=== PATIENT | female | born 1970 | race Caucasian/White ===

== ENCOUNTER → 2018-09-03 10:49 | Outpatient (CLI) | payer OTHER, SELFPAY ==
--- NOTE | 2018-09-03 12:39 | DI.MG.S_ITS ---
BILATERAL DIGITAL DIAGNOSTIC MAMMOGRAM 3D/2D: 09/03/2018 CLINICAL: Left breast pain. Per technologist, the patient reports left breast pain that has been ongoing for 3 years. Always would come and go, until summer 2017 it became a constant dull ache that would be increasingly tender to touch. Localized to one area. Not comparible to cyclic pain. All pain subsided 3 weeks ago. No other changes noted and no recent CBE done.. Comparison is made to exams dated: 08/17/2016 mammogram, 11/25/2014 mammogram, and 11/19/2013 mammogram - [facility]. There are scattered fibroglandular elements in both breasts. There is a square marker overlying the skin of the upper outer left breast at anterior depth at the site of the patient's reported focal pain. There is no underlying mammographic abnormality. No significant masses, calcifications, or other findings are seen in either breast. IMPRESSION: INCOMPLETE: NEEDS ADDITIONAL IMAGING EVALUATION No mammographic abnormality to correlate with the site of the patient's reported prior focal upper outer left breast pain. Targeted diagnostic ultrasound recommended for further evaluation, which will be performed immediately following this exam. This exam was interpreted at Station ID: [id number]. NOTE: For mammograms, a report in lay terms will be sent to the patient. Approximately 15% of breast malignancies will not be visualized mammographically. In the management of a palpable breast mass, a negative mammogram must not discourage biopsy of a clinically suspicious lesion. Electronically Signed By: Desmond Cortes M.D. ecl/:09/03/2018 13:33:15 letter sent: Additional Imaging Needed ACR BI-RADS Category 0: Incomplete [id number]
--- NOTE | 2018-09-03 12:39 | DI.US.S_ITS ---
LIMITED ULTRASOUND OF LEFT BREAST: 09/03/2018 CLINICAL: Diffuse left breast pain x 3 yrs. Comparison is made to exams dated: 09/03/2018 mammogram, 08/17/2016 mammogram, 11/25/2014 mammogram, 11/19/2013 mammogram - [facility], and 07/09/2011 mammogram - [facility] [place]. Color flow and real-time ultrasound of the left breast 2 o'clock region were performed. Carreon scale images of the real-time examination were reviewed. Targeted ultrasound was performed in the region of the patient's reported focal pain in the left breast at 2 o'clock 3 cm from the nipple to 2 o'clock 15 cm from the nipple. No underlying breast mass or abnormality is identified. IMPRESSION: NEGATIVE 1) No ultrasound findings to explain patient's reported focal pain in the left breast at 2 o'clock position. Recommend clinical follow-up for further evaluation and management of the patient's reported symptoms. 2) There is no sonographic evidence of malignancy in the imaged left breast. Return to annual screening mammography is recommended. The patient is advised to monitor her breasts and to return sooner for re-evaluation should she feel anything grow or change. This exam was interpreted at Station ID: [id number]. Electronically Signed By: Desmond Cortes M.D. ecl/:09/03/2018 14:53:03 letter sent: Clinical Evaluation Ultrasound BI-RADS: 1 Negative
== END ==
PROVIDERS: Family Provider Nurse Practitioner Family; PCP Nurse Practitioner Family; Visit Provider Obstetrics & Gynecology
DX: R92.8 Other abnormal and inconclusive findings on diagnostic imaging of breast (principal); N64.4 Mastodynia
CPT/HCPCS: 76642; 77066; G0279

== ENCOUNTER → 2018-12-16 14:02 | Outpatient (REF) | payer SELFPAY ==
[2018-12-16 15:49] LABS: Urine Drug Scr, Empl Non-NIDA See Separate Report
== END ==
LOC: LAB 14:02
PROVIDERS: Family Provider Nurse Practitioner Family; PCP Nurse Practitioner Family
DX: Z01.89 Encounter for other specified special examinations (principal)
CPT/HCPCS: 81099

== ENCOUNTER → 2019-04-01 09:28 | Outpatient (CLI) | payer OTHER, SELFPAY ==
[2019-04-01 11:09] LABS: Follicle Stimulating Hormone 9.58 mIU/mL
== END ==
PROVIDERS: PCP Family Medicine; Visit Provider Obstetrics & Gynecology
DX: Z78.0 Asymptomatic menopausal state (principal)
CPT/HCPCS: 36415; 83001

== ENCOUNTER → 2019-07-23 09:23 | Outpatient (CLI) | payer OTHER, SELFPAY ==
--- NOTE | 2019-07-23 | DI.RAD.S_ITS ---
PROCEDURE: XR SACRUM COCCYX MIN 2V INDICATIONS: COCCYGEAL PAIN, NO HX OF INJURY TECHNIQUE: 3 views of the sacrum and coccyx acquired. COMPARISON: None. FINDINGS: Bones: No fractures or dislocations. No suspicious bony lesions. Sacroiliac joints appear grossly intact. Soft tissues: Visualized bowel gas pattern is normal. No suspicious soft tissue densities. IMPRESSION: Mild lower lumbar spondylosis and facet arthropathy otherwise unremarkable examination. Dictated by: Akin Cornejo M.D. on 07/23/2019 at 10:06 Approved by: Akin Cornejo M.D. on 07/23/2019 at 10:09
== END ==
PROVIDERS: PCP Family Medicine; Visit Provider Family Medicine
DX: M53.3 Sacrococcygeal disorders, not elsewhere classified (principal); M47.816 Spondylosis without myelopathy or radiculopathy, lumbar region
CPT/HCPCS: 72220

== ENCOUNTER → 2019-07-31 09:32 | Outpatient (CLI) | payer OTHER, SELFPAY ==
[2019-07-31 09:44] LABS: Bacteria Urine None Seen; RBC Urine None Seen (0-5/HPF); WBC Urine None Seen (0-5/HPF)
[2019-07-31 10:35] LABS: Appearance Urine UA CLEAR; Bilirubin Urine UA NEGATIVE (NEGATIVE); Color Urine UA YELLOW; Glucose Urine UA NEGATIVE (Negative); Ketones Urine UA NEGATIVE (NEGATIVE); Leukocyte Esterase Urine UA NEGATIVE (NEGATIVE); Nitrite Urine UA NEGATIVE (Negative); Occult Blood Urine UA NEGATIVE (Negative); Protein Urine UA NEGATIVE (Negative); Urobilinogen Urine UA 0.2 E.U./dL (0.2)
[2019-07-31 10:44] LABS: Culture Indicated Urine Cult Not Indicated; Squamous Epithelial Cell Urine 5-10 /HPF (0-5/HPF)
== END ==
PROVIDERS: PCP Family Medicine; Visit Provider Specialist
DX: R30.0 Dysuria (principal); R30.9 Painful micturition, unspecified; R35.0 Frequency of micturition; R39.89 Other symptoms and signs involving the genitourinary system
CPT/HCPCS: 81001

== ENCOUNTER → 2019-09-29 09:57 | Outpatient (CLI) | payer OTHER, SELFPAY ==
[2019-09-29 12:23] LABS: HIV 1 & 2 Ab/Ag 4th Gen Combo NEGATIVE (NEGATIVE)
[2019-10-01 18:45] LABS: RPR Screen Nonreactive (Nonreactive)
[2019-10-05 14:21] LABS: C.trachomatis RNA NOT DETECTED; N.gonorrhoeae RNA NOT DETECTED
== END ==
PROVIDERS: PCP Family Medicine; Visit Provider Obstetrics & Gynecology
DX: Z11.3 Encounter for screening for infections with a predominantly sexual mode of transmission (principal); Z00.00 Encounter for general adult medical examination without abnormal findings
CPT/HCPCS: 36415; 86592; 87389; 87491; 87591